=== PATIENT | female | born 1990 | race Caucasian/White ===

== ENCOUNTER 2021-07-04 14:35 | Outpatient (CLI) | payer BC, SELFPAY ==
--- NOTE | ~2021-07-04 | MR_ITS ---
EXAMINATION: MR hip RT wo con DATE: 07/04/2021 15:38 INDICATION: Right hip pain TECHNIQUE: Magnetic resonance imaging (MRI) of the right hip was performed without intravenous contr ast. Sequences included full-field axial PD-weighted FS FSE and T1-weighted FSE, coronal of the pelvi s with PD-weighted FS FSE, T2-weighted FSE and T1-weighted FSE, small field of view of the right hip with axial PD-weighted FS FSE, sagittal PD-weighted FS FSE, coronal PD-weighted FS FSE and coronal T2 weighted FSE. Additional radial T1-weighted FGR oriented orthogonal to the acetabular rim were obt ained for evaluation of the labrum. COMPARISON: None FINDINGS: Bones/labrum/cartilage: Alignment is normal. No fracture, avascular necrosis or pathologic marrow replacing process. Labrum is normal. Articular cartilage is normal. Magnetic field artifact centered at L5-S1 with configuratio n suggesting plate and screw fixation for anterior spinal fusion. Fluid: Symmetric physiologic amount of fluid within both hip joints. Soft tissues: Normal and symmetric muscle bulk and signal in the pelvis and visualized proximal thighs. The iliopso as, gluteal and proximal hamstring tendons are normal. Limited evaluation of visceral organs of the p adebayo is unremarkable. No pathologically enlarged pelvic/inguinal lymphadenopathy. IMPRESSION: 1. Normal right hip. 2. Plate-screw fixation for L5-S1 anterior spinal fusion. Reviewed, dictated and finalized at [facility]. EIN SCIENTIST
== END 2021-07-04 14:36 ==
LOC: MICIMG 14:37
PROVIDERS: PCP Registered Nurse; Visit Provider Physician Assistant
DX: M25.551 Pain in right hip (principal); Z98.1 Arthrodesis status
CPT/HCPCS: 73721

== ENCOUNTER 2022-08-19 10:53 | Outpatient (CLI) | payer BC, SELFPAY ==
--- NOTE | ~2022-08-19 | US_ITS ---
Pelvic ultrasound. Clinical History: Pelvic mass/swelling Technique: Realtime transabdominal scanning of the pelvis was performed. Color flow Doppler and Doppl er spectral analysis were performed. Findings: The uterus is anteverted. The endometrial stripe has a thickness of 15 mm. No focal mass i s identified. The right ovary measures 2.4 x 1.7 x 2.4 cm. No significant right ovarian or adnexal mass is seen. The left ovary measures 3.4 x 2.0 x 2.8 cm. No significant left ovarian or adnexal mass is seen. There is no evidence of free fluid in the cul de sac. Impression: Unremarkable pelvic ultrasound. Reviewed, dictated and finalized at location . ING ACCESSORIES MAKER Impression: Unremarkable pelvic ultrasound.
== END 2022-08-19 10:54 ==
PROVIDERS: PCP Registered Nurse; Visit Provider Nurse Practitioner
DX: R19.09 Other intra-abdominal and pelvic swelling, mass and lump (principal); R10.2 Pelvic and perineal pain
CPT/HCPCS: 76856

== ENCOUNTER 2023-06-16 09:44 | Outpatient (CLI) | payer BC, SELFPAY ==
--- NOTE | ~2023-06-16 | MR_ITS ---
MRI of the lumbar spine Clinical History: Radiculopathy Technique: Axial T2-weighted images, and sagittal T1-weighted, T2-weighted, and T2 fat-sat images wer e acquired. Findings: There is no acute fracture or subluxation of the lumbar spine. There is anterior and interb idris fusion from L5 to S1, with associated hardware and mild susceptibility artifact. No other bone ma rrow signal abnormality identified. At L1-L2, L2-L3, L3-L4, L4-L5, the intervertebral discs are normal in signal and position. No disc bu lge or herniation at these levels. There are mild facet joint degenerative changes. No spinal canal s tenosis or neural foraminal narrowing at these levels. At L5-S1, there is no disc bulge or herniation. No spinal canal stenosis or definite neural foraminal narrowing. Paravertebral soft tissues are unremarkable. Impression: Anterior and interbody fusion from L5 to S1, as noted above. Otherwise, essentially unremarkable exam. Reviewed, dictated and finalized at [facility]. BALL UMPIRE [employer] Impression: Anterior and interbody fusion from L5 to S1, as noted above. Otherwise, essentially unremarkable exam.
--- NOTE | ~2023-06-16 | MR_ITS ---
MRI of the thoracic spine Clinical History: Back pain Technique: Axial T2-weighted and gradient images, and sagittal T1-weighted, T2-weighted, and STIR kenneth ges were acquired. Findings: There is no fracture or subluxation of the thoracic spine. Vertebral bodies maintain normal height and alignment. No bone marrow signal abnormality seen. No disc bulge or herniation seen at any thoracic level. No spinal canal stenosis or cord compression identified. No epidural mass or collection seen. No abnormal signal seen in the spinal cord. Paravertebral soft tissues are unremarkable. Impression: Unremarkable exam. Reviewed, dictated and finalized at location . IC SERVICES ASSISTANT Impression: Unremarkable exam.
--- NOTE | ~2023-06-16 | MR_ITS ---
MRI of the cervical spine Clinical History: Pain Technique: Axial T2-weighted and gradient images, and sagittal T1-weighted, T2-weighted, and STIR kenneth ges were acquired. Findings: There is no fracture or subluxation of the cervical spine. Vertebral bodies maintain normal height and alignment. No bone marrow signal abnormality seen. At C2-C3, there is no disc bulge or herniation. No spinal canal stenosis, cord compression, or neural foraminal narrowing. At C3-C4, there is minimal disc bulge. No spinal canal stenosis, cord compression, or neural foramina l narrowing. At C4-C5, there is minimal disc bulge. No spinal canal stenosis, cord compression, or definite neural foraminal narrowing. At C5-C6, there is mild disc bulge. There is minimal canal stenosis without marlys cord compression. N eural foramina are preserved. At C6-C7, there is minimal disc bulge. No spinal canal stenosis, cord compression, or definite neural foraminal narrowing. No abnormal signal seen in the spinal cord. Paravertebral soft tissues are unremarkable. Impression: Minimal degenerative spondylosis, as above. Reviewed, dictated and finalized at location M. L CARRIER Impression: Minimal degenerative spondylosis, as above.
== END 2023-06-16 09:45 ==
PROVIDERS: PCP Registered Nurse; Visit Provider Registered Nurse
DX: M43.27 Fusion of spine, lumbosacral region (principal); M43.02 Spondylolysis, cervical region; M54.16 Radiculopathy, lumbar region; M51.36 Other intervertebral disc degeneration, lumbar region; G89.29 Other chronic pain
CPT/HCPCS: 72141; 72146; 72148

== ENCOUNTER 2023-08-19 14:03 | Outpatient (CLI) | payer BC, SELFPAY ==
--- NOTE | ~2023-08-19 | US_ITS ---
EXAMINATION: US pelvic complete DATE: 08/19/2023 14:28 INDICATION: Right pelvic pain. TECHNIQUE: Multiple transabdominal sonographic images of the pelvis were obtained. COMPARISON: Pelvis ultrasound 08/19/2022 FINDINGS: The uterus measures 9.1 x 3.9 x 5.0 cm. There is no free fluid in the pelvis. The endometrial complex measures 8 mm in thickness. The right ovary measures 2.8 x 1.5 x 2.1 cm. The left ovary measures 4.0 x 2.5 x 3.3 cm. There is normal vascular flow in the ovaries. IMPRESSION: 1. Normal pelvis. Reviewed, dictated and finalized at location E. LATION TECHNICIAN IMPRESSION: 1. Normal pelvis.
== END 2023-08-19 14:04 ==
PROVIDERS: PCP Registered Nurse; Visit Provider Nurse Practitioner
DX: R10.2 Pelvic and perineal pain (principal)
CPT/HCPCS: 76856